=== PATIENT | male | born 1980 | race Caucasian/White ===

== ENCOUNTER 2024-12-16 09:19 | Emergency (ER) | payer OTHER, SELFPAY ==
[2024-12-16 09:20] VITALS: BMI 22.5
[2024-12-16 09:40] VITALS: BP 112/70; PULSE 68; RESP 16; TEMP 36.7; O2SAT 100
[2024-12-16] MEDS: LIDOCAINE HCL 1% 20 ML VIAL INFL (10:08)
--- NOTE | 2024-12-16 10:08 | EDNOTE_ITS ---
<Statement entered by Brunilda Goodman MD - 12/25/24 19:13> As co-signing physician, I was present and available for consult prn. I concur with the plan and care as documented by the midlevel provider. ED Wound/Laceration-RME/HPI General Chief Complaint: Hand/Wrist Problems Stated Complaint: SLICED FINGERS TO THE BONE WITH CURER FOAM RUBBER Time Seen by Provider: 12/16/24 09:40 Source: patient Arrival date/time: 12/16/24 09:19 44-year-old male with no known medical history presents to the emergency room with a chief complaint of laceration to his right hand 1st and 3rd digit. 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 Mode of arrival: ambulatory Limitations: no limitations Related Data Previous Rx's ?Medication ?Instructions ?Recorded cephalexin 500 mg capsule 500 mg PO BID 7 days #14 cap s 12/16/24 naproxen 500 mg tablet 500 mg PO BID PRN pain #30 t abs 12/16/24 Allergies Allergy/AdvReac Type Severity Reaction Status Date / Time No Known Allergies Allergy Verified 12/16/24 09:23 Review of Systems Review of Systems Systems Reviewed: All systems reviewed, normal except as documented Constitutional Constitutional: Reports system reviewed and no additional complaints, except as documented, Denies fatigue, Denies fever(s), Denies headache(s) and Denies weakness Eyes Eyes: Reports system reviewed and no additional complaints, except as documented, Denies blurry vision and Denies change in vision ENT Ears, Nose, Mouth, and Throat: Reports system reviewed and no additional complaints, except as documented, Denies otalgia, Denies headache(s), Denies nasal congestion, Denies throat swelling and Denies vertigo Cardiovascular Cardiovascular: Reports system reviewed and no additional complaints, except as documented, Denies chest pain, Denies dyspnea and Denies dyspnea on exertion Respiratory Respiratory: Reports system reviewed and no additional complaints, except as documented, Denies chest congestion, Denies cough, Denies dyspnea, Denies dyspnea on exertion and Denies wheezing Gastrointestinal Gastrointestinal: Reports system reviewed and no additional complaints, except as documented, Denies abdominal pain, Denies cramping, Denies nausea and Denies vomiting Genitourinary Genitourinary: Reports system reviewed and no additional complaints, except as documented, Denies dysuria and Denies hematuria Musculoskeletal Musculoskeletal: Reports system reviewed and no additional complaints, except as documented and Denies back pain Integumentary/Breasts Skin/Breast: Reports system reviewed and no additional complaints, except as documented and Denies wounds Neurologic Neurologic: Reports system reviewed and no additional complaints, except as documented, Denies confusion, Denies headache(s), Denies lack of coordination, Denies vertigo and Denies weakness Psychiatric Psychiatric: Reports system reviewed and no additional complaints, except as documented, Denies anxiety, Denies confusion, Denies depression, Denies paranoia, Denies suicidal ideation and Denies tactile hallucinations Endocrine Endocrine: Reports system reviewed and no additional complaints, except as documented and Denies fatigue Hematologic/Lymphatic Hematologic/Lymphatic: Reports system reviewed and no additional complaints, except as documented and Denies lymphadenopathy Allergic/Immunologic Allergic/Immunologic: Reports system reviewed and no additional complaints, except as documented, Denies throat swelling, Denies urticaria and Denies wheezing ED Exam General Limitations: Present no limitations General appearance: Present alert and in no apparent distress Head Head exam: Present atraumatic Eye Eye exam: Present normal appearance, PERRL and EOMI ENT ENT exam: Present normal exam, normal oropharynx and mucous membranes moist Neck Neck exam: Present normal inspection, full ROM and trachea midline Chest Chest inspection: Present normal inspection and symmetric chest wall rise Respiratory Respiratory exam: Present normal lung sounds bilaterally Cardiovascular Cardiovascular exam: Present regular rate, normal rhythm and normal heart sounds Abdominal Exam Abdominal exam: Present soft and normal bowel sounds Extremities Exam Extremities exam: Present normal inspection and full ROM Expanded Upper Extremity Exam Shoulder exam: Present normal inspection Arm exam: Present normal inspection Elbow exam: Present normal inspection Forearm/Wrist exam: Present normal inspection Hand exam: Present normal inspection and laceration Hand L/R back image: 2 1. Patient has a 1 cm laceration that has severed the tendon. The tendon is hanging on by the sheath. The patient still has range of motion and is able to extend and flex the tendon with pain. I can visually see a lacerated tendon. 2. 0.5 cm laceration that was closed and sutured. Hand tendon exam: Normal extensor tendon (location) (Laceration to the extensor tendon on the third digit right hand MCP joint. The patient has range of motion and is able to flex and extend finger.) Vascular exam: Normal capillary refill, radial pulse, ulnar pulse and brachial pulse Back Exam Back exam: Present normal inspection and full ROM Neurological Exam Neurological exam: Present alert, oriented X3 and CN II-XII intact Psychiatric Psychiatric exam: Present normal affect and normal mood Skin Skin exam: Present warm, dry, intact and normal color Course Quality Measures none Orders Category Date Time Status Insert IV NOW Care 12/16/24 19:04 Completed Set Up Suture Tray STAT Care 12/16/24 10:04 Completed Splint / Immobilizer STAT Care 12/16/24 12:29 Completed Wound Care NOW Care 12/16/24 10:04 Completed Referral - Packaging Line Attendant Stat Cons 12/16/24 10:49 Active Lidocaine 1% 20 ml [Xylocaine 1% 20 ML] Med 12/16/24 10:04 Discontinued 20 ml INFL X1 ONE Naproxen [Naprosyn] Med 12/16/24 19:04 Discontinued 500 mg PO X1 ONE TET,DIP/PERT AC (Adult)-Tdap [Boostrix Adult (Tdap) Med 12/16/24 10:04 Discontinued Vacc] 0.5 ml IMI .ONCE ONE cephALEXin [Keflex] Med 12/16/24 19:04 Discontinued 500 mg PO X1 ONE Vital Signs Vital signs: Vital Signs Temperature 98.1 F 12/16/24 09:40 Pulse Rate 68 12/16/24 09:40 Respiratory Rate 16 12/16/24 09:40 Blood Pressure 112/70 12/16/24 09:40 Pulse Oximetry (%) 100 12/16/24 09:40 Oxygen Delivery Method Room Air 12/16/24 09:40 PROCEDURES: Laceration Laceration 1: Site: hand Side (If applicable): right Size (cm): 0.5 Description: linear Depth: simple, single layer Local Anesthetic: lidocaine 1% Amount of anesthesia used (mL): 3 Pre-repair: irrigated extensively Skin layer closed with: nylon Suture size (cm): 4-0 Number of sutures: 2 Technique: simple, interrupted Wound / Laceration MDM Narrative MDM Narrative:: 44-year-old male with no known medical history presents to the emergency room with a chief complaint of laceration to his right hand 1st and 3rd digit. 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 Patient is hemodynamically stable and in no apparent distress Physical examination shows 2 lacerations to the patient's right hand. The first laceration is near the first digit it is 1 cm and there is no damage to the tendon. I was able to suture it 3 sutures were used to close and approximate the wound. The wound was cleaned and prepped with Betadine and the wound was closed and sutured with no complications. The second laceration is near the third digit next to the MCP joint. I am able to visually see a lacerated tendon the tendon has a laceration to it. The patient has range of motion to his finger and is able to extend and flex the. I can visually see the tendon is hanging on by the sheath. I called my attending physician Dr. Goodman who came and evaluated the patient and was able to also visualize the laceration to the tendon. Her recommendations were to get a hold of a hand specialist and follow the recommendations. There is no imcu specialist on-call so I began the transfer process to speak to a hand specialist or an imcu specialist. I spoke to [facility] and the patient was denied. I then spoke to [facility], they called their hand specialist and left a message as he was unavailable at the time. I splinted and immobilized the joint with a volar splint. At this time the laceration was left open. This patient was then signed off to my colleague Robbin COLLINS who will continue care and wait for the call back from the hand specialist [facility] and follow his recommendations. Patient data External records reviewed:: [facility] previous records Clinical information provided by:: patient Social determinants that could affect healthcare access:: none Patient has the following chronic illnesses:: No chronic illness How is presenting disease/condition affected by chronic disease/condition?: no chronic disease Evaluation data The following diagnostics were reviewed and interpreted by me:: lab results and radiology exam(s) Lab and/or radiology exams considered but not ordered:: Labs and radiology exams considered in order Interpretation Summary: N/A Medications / Prescriptions Medications or Prescriptions considered but not ordered:: Medication given Medication administrations:: Medication Administration History Discontinued Medications Cephalexin HCl (Cephalexin 250 Mg Capsule) 500 mg PO X1 ONE Stop: 12/16/24 19:05 Last Admin: 12/16/24 19:12 Dose: 500 mg Documented By: SM Diphtheria/Tetanus/Acell Pertussis (Diphth,Pertuss(Acell),Tet Vac 0.5 Ml Syr- Adult) 0.5 ml IMi .ONCE ONE Stop: 12/16/24 10:05 Last Admin: 12/16/24 10:14 Dose: 0.5 ml Documented By: NIKKI Lidocaine HCl (Lidocaine Hcl 1% 20 Ml Vial) 20 ml INFL X1 ONE Stop: 12/16/24 10:05 Last Admin: 12/16/24 10:08 Dose: 20 ml Documented By: GM Comments: GIVEN TO JASON MACHINE STRIPER Naproxen (Naproxen 250 Mg Tablet) 500 mg PO X1 ONE Stop: 12/16/24 19:05 Last Admin: 12/16/24 19:12 Dose: 500 mg Documented By: SM Medication given Consultations Consultation(s) initiated? (list below): No Diagnosis Wound Differential Diagnosis: laceration and abrasion Most likely diagnosis given after review of the tests above:: Laceration Admission Indicated Admission indicated?: not indicated Admission Request Was there a request for admission?: No Disposition Plan Disposition Plan: Discharge Discharge Attestation Discharge Attestation: The patient and all family members were given an opportunity to ask questions and understood the discharge instructions. Discharge instructions specifically effects, indications for sooner follow up or return to the emergency department, and the expected course of current diagnosis. Patient condition: Stable Discharge Plan Plan Patient Disposition: HOME (Self Care) Discharge Disposition comment: Stable Prescriptions/Referrals Prescriptions/Med Rec: New cephalexin 500 mg capsule 500 mg PO BID 7 Days Qty: 14 0RF naproxen 500 mg tablet 500 mg PO BID PRN (Reason: pain) Qty: 30 0RF Referrals: No Primary/Family,Physician [Primary Care Provider] - In 1 week Problem List Clinical Impression: Laceration Patient/Caregiver Discharge Instructions Education Materials: ED Laceration Hand with ... Additional Instructions: Please follow-up with PCP within 24-48 hours and return immediately if symptoms worsen. Call Dr. Anderson's office tomorrow to see next available appointment. Print Language: Welsh Stand Alone Forms: Patient Portal Info Letter LINA/HOUSE MOVING SUPERVISOR Supervising Physician LINA/THAI Supervising Physician: Dr. Stevens
[2024-12-16] MEDS: DIPHTH,PERTUSS(ACELL),TET VAC 0.5 ML SYR- ADULT IMi (10:14)
--- NOTE | 2024-12-16 11:40 | PC.CM ---
Addendum entered by Juany Ricketts RN 12/16/24 17:45: 1740 I spoke to Ashok and he states he did speak to [facility] but they were not able to get a hold of the hand doctor. They told Ashok they would get back to him. 1720 I received a call from [facility] and they wanted to speak to Ashok. I transferred the call to [place]. Addendum entered by Juany Ricketts RN 12/16/24 17:42: 1530 [facility] transfer nurse called me and she stated she did not get the updated facesheet. I let her know I faxed it earlier and it showed it went through. She asked me to fax another facesheet. I fax at this time. Addendum entered by Juany Ricketts RN 12/16/24 15:36: 1450 I spoke to Alejandro at [facility] and she states she needs an updated facesheet because the one I sent not a complete facesheet. 1420 I faxed information to [facility]. Addendum entered by Juany Ricketts RN 12/16/24 13:54: 1330 I recieved a call back from Marjan transfer nurse at [facility]. She states Dr. Acevedo reviewed images and he does not feel patient needs to be an acute transfer. He was going to offer f/up at their outpatient clinic, but there clinic to be closed. I called Ashok BREAD DISTRIBUTOR and he states to try [facility]. Addendum entered by Juany Ricketts RN 12/16/24 11:59: I spoke to Marjan at [facility] and I presented patient and I let her know that I already faxed over information to them. I provided verbal report and she asked to speak to Armin Madden [facility]. I put call on conference and Marjan spoke to Armin. Original Note: 1061 I received a referral to transfer patient for orthopedics. Patient has a tear to extensor tendon in the right had third digit near the MCP joint. I send over information to [facility].
[2024-12-16 16:30] VITALS: BP 117/80; PULSE 62; RESP 16; TEMP 36.8; O2SAT 96
--- NOTE | 2024-12-16 18:45 | EDNOTE_ITS ---
Emergency Room Addendum Addendum Narrative: Care received from Ashok SMITH. Physical exam reveals no obvious/visible tendon injury of L middle finger. Flexion and extension, while painful, are intact. Spoke with larisa Galvan RN at [facility], who states Dr. Anthony Anderson, hand/plastic surgeon, recommends skin closure and follow-up outpatient with him. Patient prefers no sutures given Dr. Anderson needs to see into the wound and he would rather not have the Dr cut it open again. Skin therefore closed with a com earnestine of glue and steri-strips. Finger splint and DUSTIN wrap applied for immobilization. Will give short course of ABX prophylaxis given possible tendon injury.
[2024-12-16] MEDS: NAPROXEN 250 MG TABLET 500 MG PO (19:12)
[2024-12-16 19:48] VITALS: BP 124/73; PULSE 77; RESP 20; TEMP 36.8; O2SAT 98
--- NOTE | 2024-12-16 19:57 | PC.NURSE ---
[facility] , INFORMED ME THAT THEY CAN'T REACH THE HAND SURGEON .
--- NOTE | 2024-12-16 19:58 | PC.NURSE ---
CALLED [facility], NO HAND SURGEON.
--- NOTE | 2024-12-16 19:59 | PC.NURSE ---
CALLED [facility], INFORMATION GIVEN TO TRANSFER NURSE, TRANSFER NURSE TALKED TO KARINA MILLS, THEY WILL CALL BACK.
--- NOTE | 2024-12-16 20:59 | PC.NURSE ---
SOFÍA FROM [facility] CALLED INFORMED ME THAT PT CAN BE OUT PT REFERRAL, DR GUERRERO SAID TO SUTURE AND APPLIED SPLINT. PT WILL MAKE APPOINTMENT TO SEE HIM.
[2024-12-16 21:04] VITALS: BP 124/69; PULSE 78; RESP 16; TEMP 36.9; O2SAT 95
== END 2024-12-16 21:00 | disposition home or self-care (01) ==
PROVIDERS: Emergency Provider Emergency Medicine
DX: S61.411A Laceration without foreign body of right hand, initial encounter (principal); W26.8XXA Contact with other sharp object(s), not elsewhere classified, initial encounter; Y99.0 Civilian activity done for income or pay
CPT/HCPCS: 12002; 90471; 90715; 99283; J3490; A9270